=== PATIENT | male | born 1945 | race African-American/Black ===

== ENCOUNTER 2023-08-24 14:08 | Emergency (ER) | payer MEDICARE ==
[~2023-08-24] VITALS: Ht 185.4 cm; Wt 83.0 kg
[2023-08-24 14:11] VITALS: BP 210/100; PULSE 130; RESP 16; TEMP 98.4; O2SAT 99
[2023-08-24] MEDS ORDERED: SODIUM CHLORIDE 0.9% 1,000 ML IV ONE (14:15)
[2023-08-24] MEDS ORDERED: LORAZEPAM 1MG TABLET PO ONE (14:15)
[2023-08-24 15:42] LABS: BASOPHILS % 0.7 % (0.0-2.0); DIFFERENTIAL COMMENT 0; EOSINOPHILS % 0.3 % (0.0-5.0); HEMATOCRIT. 37.1 % (42.0-52.0); HEMOGLOBIN. 11.8 g/dL (14.0-18.0); LYMPHOCYTES % 19.8 % (20.0-50.0); MEAN CORPUSCULAR HEMOGLOBIN 23.1 pg (28.0-32.0); MEAN CORPUSCULAR HGB CONC 31.8 g/dL (31.0-37.0); MEAN CORPUSCULAR VOLUME 72.8 fL (80.0-94.0); MEAN PLATELET VOLUME 9.8 fl (7.4-10.4); MONOCYTES % 5.2 % (2.0-8.0); PLATELET 132 x1000/uL (130-400); RED CELL DISTRIBUTION WIDTH 16.7 % (11.6-14.6)
[2023-08-24 16:24] LABS: ALANINE AMINOTRANSFERASE 10 IU/L (10-49); ASPARTATE AMINOTRANSFERASE 12 IU/L (<34); BILIRUBIN TOTAL 0.4 mg/dL (0.1-1.0); CARBON DIOXIDE 27 mEq/L (21-32); CHLORIDE 112 mEq/L (98-107); CREATININE 2.4 mg/dL (0.6-1.3); GLUCOSE 125 mg/dL (70-105); POTASSIUM 4.5 mEq/L (3.5-5.1); PROTEIN TOTAL 6.8 g/dL (6.0-8.3); SODIUM 144 mEq/L (136-145); UREA NITROGEN BLOOD 31 mg/dL (9-23)
[2023-08-24 16:30] LABS: ETHANOL BLOOD < 10 mg/dL (<10)
== END 2023-08-24 17:52 | disposition home or self-care (01) ==
LOC: ER 14:08
DX: T40.711A Poisoning by cannabis, accidental (unintentional), initial encounter (principal); I10 Essential (primary) hypertension; F12.10 Cannabis abuse, uncomplicated; Y92.89 Other specified places as the place of occurrence of the external cause
CPT/HCPCS: 80053; 80320; 85025; 36415; 96360; 99283; J7030; G0480